=== PATIENT | female | born 1940 | race Caucasian/White ===

== ENCOUNTER → 2017-04-01 | Outpatient (CLI) | payer MEDICARE, OTHER ==
[~2017-04-01] MED LIST: ACETAMINOPHEN; ASPIRIN81 M1 PO; ASPIRIN81 M2 PO; ATORVASTATIN CA10 MG PO; AZITHROMYCIN250 MG PO; BAYER CHEWABLE81 MG PO; BUPROPION HCL150 M1 PO; BUPROPION XL300 MG PO; CALCIUM + D 6001 TA1 PO; CALCIUM 500 + D1 TAB; CARAFATE1 G PO; CELEXA PO; CITALOPRAM HBR40 MG PO; COUMADIN PO; COZAAR100 MG PO; DITROPAN PO; DITROPAN XL PO; EVISTA60 M1 PO; EVISTA60 MG; FERROUS GLUCON325 M1 PO; FLOVENT7.9 GM INH; GABAPENTIN300 M2 PO; HCTZ; HYDROCHLOROTH12.5 MG PO; HYDROCODON-ACE1 EAC1 PO; IBUPROFEN800 MG PO; JANUVIA PO; KCL PO; LIPITOR40 MG PO; LISINOPRIL; LOMOTIL WHITE2.5 M1 PO; LOMOTIL WHITE2.5 MG PO; LORTAB 10-5001 EACH PO; LORTAB 5/500 TA1 TA1 PO; LOSARTAN POTAS100 MG PO; LOSARTAN-HCTZ1 EAC2 PO; LOSARTAN-HCTZ1 EACH PO; METFORMIN HCL500 M2 PO; METFORMIN PO; METOPROLOL SUC100 MG PO; MEVACOR; MULTI VITAMIN1 EACH PO; MULTI-DAY1 TAB PO; MULTI-VITAMIN1 TAB; NEURONTIN300 MG PO; NORCO 5/325 TAB1 TAB PO; OMEPRAZOLE40 MG PO; ONE DAILY FOR1 EAC3 PO; OXAPROZIN600 MG PO; OXYBUTYNIN15 MG/BOTT PO; PANTOPRAZOLE SO40 MG PO; PERCOCET5/325 PO; PRILOSEC; PROTONIX PO; SIMVASTATIN40 MG PO; TOPROL XL100 MG PO; VOLTAREN75 MG PO; ZOCOR PO
--- NOTE | ~2017-04-01 | MY29 ---
[facility] A Service of [facility] / [facility] RADIOLOGY TEXT RESULTS PATIENT: DUGLAS DOWELL LOCATION: [facility] : 44 UNIT #: [id number] AGE: [address]: Na Oquendo MD SEX: F ORDER DR: [id number] [address] [id number] MR#: [id number] Acc #: [id number] NAME: DUGLAS DOWELL : 1940 SEX: F STUDY DATE/TIME: 04/01/2017 9:30 UNIT: [facility] ROOM: STUDY DESCRIPTION: [facility] SCREENING W/ CAD BILAT Attending Physician: Na Oquendo M.D. Referring Physician: Na Oquendo M.D. Ordering Physician: Na Oquendo M.D. Primary Care Physician: Na Oquendo M.D. MEDICAL IMAGING REPORT This report is preliminary unless electronic signature is present EXAM Digital screening mammogram with CAD. INDICATIONS Routine screening. PROCEDURE Bilateral CC and MLO views obtained on a digital mammography unit; FDA-approved CAD device was utilized. COMPARISON 02/06/2012 FINDINGS The breasts are dense bilaterally. Stable parenchymal pattern. No dominant mass or suspicious calcification. IMPRESSION Negative screening mammogram. Screening interval in 1 year suggested. Patients over the age of 40 are entered into a reminder system with target due date for the next mammogram. A result letter will also be sent to the patient. BIRADS: 1 Negative Dictated by... Shiv Jean Baptiste M.D. THIS IS AN ELECTRONICALLY VERIFIED REPORT Shiv Jean Baptiste M.D. at 04/02/2017 7:01 AM ARLYN/brittany [facility] A Service [facility] RADIOLOGY TEXT RESULTS PATIENT: DUGLAS DOWELL LOCATION: [facility] : 44 UNIT #: [id number] AGE: [address]: Na Oquendo MD SEX: F ORDER DR: TD: 04/01/2017 17:31 JOB #: [id number] MEDICAL IMAGING REPORT Page 1 of 1 COPY
== END | disposition home or self-care (01) ==
LOC: CWCC 09:11
DX: Z12.31 Encounter for screening mammogram for malignant neoplasm of breast (principal)
CPT/HCPCS: G0202